=== PATIENT | male | born 1955 | race Caucasian/White ===

== ENCOUNTER 2024-10-25 09:28 | Emergency (ER) | payer MEDICARE, SELFPAY ==
--- OUTSIDE RECORDS SUMMARY | 2024-07-28 09:30 | XMS_ITS ---
Author Organization [facility] Address [address] [place] [address] Care Team Providers Care Decorating Inspector Name Role Phone Sofia, Fletcher Luiza [phone] REASON FOR VISIT [phone] Est Care - in Afib now per nurse Encounters Encounter Location Date Provider Diagnosis [facility] [address] [place] [address] 07/28/2024 Fletcher Sofia Plan Of Treatment No Information Progress Notes * DICKSON Mumta[birth year]DOB:[birth year] (68 yo M)Acc No.[id number]:07/28/2024 Progress Notes Patient: Mumtaz Staley Provider: Taty Sofia DO :1955 A ge:68 Y S ex:Male Date:07/28/2024 Address:[address] [place] [address] [id number] Subjective: * Chief Complaints: * [phone] [id number] Est Care - in Afib now per HH nurse * Electronic signature of Fletcher Sofia DO on 10/25/2024 at 09:37 AM CDT Sign off status: Pending * Provider: Taty Sofia DO Date: 07/28/2024 Generated for Yassinei ng/Faaramg/eTransmitting on: 0 10/25/2024 09:37 AM CDT
--- NOTE | 2024-10-25 09:35 | XRR_ITS ---
PROCEDURE INFORMATION: Exam: XR Chest Exam date and time: 10/25/2024 9:51 AM Age: 68 years old Clinical indication: Pain; Angina pectoris; Prior surgery; Surgery date: 6+ months; Surgery type: Open heart; Additional info: Chest pain TECHNIQUE: Imaging protocol: Radiologic exam of the chest. Views: 1 view. COMPARISON: No relevant prior studies available. FINDINGS: Tubes, catheters and devices: Median sternotomy suture wires. Lungs: Slightly prominent right hilum, a perihilar nodule is not excluded. Consider chest CT to help exclude pathology. Pleural spaces: Unremarkable. No pleural effusion. No pneumothorax. Heart/Mediastinum: See Vasculature finding. Vasculature: Borderline cardiomegaly and uncoiling of the thoracic aorta. Bones/joints: Prior anterior cervical fusion. XR/XR chest 1V portable [id number] IMPRESSION: Slightly prominent right hilum.
--- NOTE | 2024-10-25 09:35 | ECG_ITS ---
[facility] Test Date: 2024-10-25 Pat Name: Mumtaz Glaser Department: Room: Gender: Male [employer]: : 1955 Requested By: Pili Mejia Order Number: [id number] Jhonathan MD: Сергей Ellis M.D. Measurements Intervals [place] Rate: 75 P: -64 DE: 107 QRS: 51 QRSD: 106 T: 76 QT: 396 QTc: 444 Interpretive Statements JUNCTIONAL RHYTHM SEPTAL MYOCARDIAL INFARCTION , PROBABLY OLD [40+ ms Q WAVE IN V1/V2] No previous ECG available for comparison Electronically Signed On 10-25-2024 16:59:20 CDT by Сергей Ellis M.D. [email or web address]
--- OUTSIDE RECORDS SUMMARY | 2024-10-25 09:37 | XMS_ITS | Patient Health Record ---
Author Organization [facility] Address [address] [place] [id number] Care Team Providers Care End Finder Twisting Department Name Role Phone Elsy FISHER, Ashok Primary Care Provider Wily Sharma [phone] ALLERGIES No Known Allergies REASON FOR REFERRAL No Information MEDICATIONS Medication SIG (Take, Route, Frequency, Duration) Notes Start Date End Date Status Potassium Chloride ER 10 MEQ 1 tablet with food Orally Twice a day Active Aspirin 81 MG 1 tablet Orally Once a day Active Spironolactone 25 MG 1 tablet Orally Onc e a day Active traZODone HCl 50 MG 1 tablet at bedtime as needed Orally Once a day for 30 day(s) Active Lisinopril 10 MG 1 tablet Orally Once a day Active Eliquis 5mg 1 tablet Orally twice daily Active Nicotine 14 MG/24HR 1 patch to skin Transdermal Once a day for 30 day(s) Active Carvedilol 6.25 MG 1 tablet with food Orally Twice a day needs refill 07/18/22 Active Dulera 200-5 MCG/ACT 2 puffs Inhalation Twice a day Active SOCIAL HISTORY Tobacco Use: Social History Observation Description Date Details (start date - stop date) Current Smoker NA - NA Sex Assigned At : Social History Observation Description Sex Assigned At Unknown Tobacco Use/Smoking Question Answer Notes Smoking Status: current every day smoker Alcohol Screen Question Answer Notes Did you have a drink containing alcohol in the p ast year? No Points 0 Interpretation Negative PROBLEMS Problem Type ICD Code Onset Dates Problem Status W/U Status Risk SNOMED Code Notes Problem Paroxysmal a-fib (I48.0) Active confirmed 492722453 Problem Old [place] (myocardial infarction) (I25.2) Active confirmed 4264346 Problem HTN (hypertension), benign (I10) Active confirmed 78080656 Problem Ischemic cardiomyopathy (I25.5) Active confirmed 743097364 Problem Chronic systolic CHF (congestive heart failure), NYHA class 3 (I50.22) Active confirmed 417352701 Problem Atrial flutter by electrocardiogram (I48.92) Active confirmed 604405488 Problem COPD mixed type (J44.9) Active confirmed 01686101 Problem 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) Active confirmed 399 687927 PLAN OF TREATMENT Pending Test Test Name Order Date Basic Metabolic Panel 01/08/2021 CBC 01/08/2021 ECG 04/19/2021 PROTHROMBIN TIME-INR 01/08/2021 Echo - 2D Echo (with 3D if indicated) Future Test Test Name Order Date Basic Metabolic Panel 01/29/2021 CBC 01/29/2021 PROTHROMBIN TIME-INR 01/29/2021 EP - Ablation 02/02/2021 Insurance Providers Payer Name Payer Address Payer Phone Subscriber Number Group Number Insured Name Patient Relationship to Insured Coverage Start Date Coverage End Date [facility] [address] [address] [place], [place] [id number] Mumtaz Glaser Jr Self - patient is the insured MEDICAL (GENERAL) HISTORY Medical History History ICD Code Hypertension [place] Atrial Fibrillation Surgical History Surgery Date(Month/Year) ablation-[facility] 03/09/2021 Heart Cath 2020 CABG 2009 Hospitalization History Reason Date(Month/Year) see above
--- OUTSIDE RECORDS SUMMARY | 2024-10-25 09:37 | XMS_ITS | Patient Health Record ---
Author Organization [facility] Address [address] [place] [address] Care Team Providers Care Sheetmetal Worker Name Role Phone Nehemiah Lazcano JR Unavailable [phone] Fletcher Sofia Unavailable [phone] Allergies Allergen (clinical drug ingredient) Drug/Non Drug Allergy documented on EMR Reaction Allergy Type Onset Date Status No Known Drug Allergy Unknown Drug Allergy Active Reason For Referral No Information Medications Medication SIG (Take, Route, Frequency, Duration) Notes Start Date End Date Status Lisinopril 10 MG Tablet TAKE 1 TABLET BY MOUTH ONCE DAILY; Duration: 90 Active Potassium Chloride Hermelinda ER 20 MEQ Tablet Extended Release TAKE 1 TABLET BY MOUTH WITH FOOD ONCE DAILY; Duration: 90 days Active Carvedilol 6.25 MG Tablet 1 tablet with food Orally Twice a day; Duration: 30 days Active traZODone HCl 50 MG Tablet 1 tablet at b edtime as needed Orally Once a day; Duration: 30 days Active Spironolactone 25 MG Tablet TAKE 1 TABLET BY MOUTH ONCE DAILY; Duration: 30 days Active Apixaban 5 MG Tablet as directed Orally twice a day; Duration: 30 days Active predniSONE 10 MG Tablet 1 tablet Orally Once a day Active Dulera 200-5 MCG/ACT Aerosol 2 puffs Inhalation Twice a day Not-Taking Aspirin 81 81 MG Tablet Chewable 1 tablet Orally Once a day Active Nicotine 14 MG/24HR Patch 24 Hour 1 patch to skin Transdermal Once a day Active Reglan 10 MG Tablet 1 tablet as directed Orally once; Duration: 1 day 01/04/2021 Active Social History Tobacco Use: Social History Observation Description Date Details (start date - stop date) Current Smoker NA - NA Social History Drugs/Alcohol: Social Info Question Answer Notes Alcohol Screen (Audit-C) Did you have a drink containing alcohol in the past year? No Points 0 Interpretation Negative Tobacco Use: Social Info Question Answer Notes xTobacco Use/Smoking Are you a current smoker How often do you smoke cigarettes? every day Additional Details Category Social Info Options Details zzMigrated Social History Tobacco Use: (Tobacco Use/Smoking): Are you a:: current smoker , How many cigarettes a day do you smoke?: 11-20 ; Section Notes: Caffiene Problems Problem Type SNOMED Code ICD Code Onset Dates Problem Status W/U Status Risk Notes Problem Tobacco user (219937242) Nicotine dependence, unspecified, uncomplicated (F17.200) Active confirmed Problem Ischemic cardiomyopathy (689356264) Ischemic cardiomyopathy (I25.5) Active confirmed Problem Typical atrial flutter (638032563) Typical atrial flutter (I48.3) Active confirmed Problem Atrial fibrillation (64342203) Unspecified atrial fibrillation (I48.91) Active confirmed Problem Atrial flutter (9969808) Unspecified atrial flutter (I48.92) Active confirmed Problem Chronic systolic heart failure (367115859) Chronic systolic (congestive) heart failure (I50.22) Active confirmed Problem Chronic obstructive pulmonary disease (63904872) Chronic obstructive pulmonary disease, unspecified (J44.9) Active confirmed Problem Diverticular disease of colon (055015044) Diverticulosis of large intestine without perforation or abscess without bleeding (K57.30) Active confirmed Problem Mixed hyperlipidemia (985327224) Mixed hyperlipidemia (E78.2) Active confirmed Problem Hypertensive heart failure (54179786) Hypertensive heart disease with heart failure (I11.0) Active confirmed Problem Essential hypertension (25495197) Essential hypertension (I10) Active confirmed Problem COPD - Chronic obstructive pulmonary disease (43027835) Chronic obstructive pulmonary disease, unspecified COPD type (J44.9) Active confirmed Problem Persistent atrial fibrillation (959302181) Persistent atrial fibrillation (I48.19) Active confirmed Problem Significant coronary bypass graft disease (424788800) Coronary artery disease involving coronary bypass graft of [place] heart without angina pectoris (I25.810) Active confirmed Problem Atherosclerosis of coronary artery without angina pectoris (266729655285793) Atherosclerosis of [place] coronary artery of [place] heart without angina pectoris (I25.10) Active confirmed Problem Tobacco user (546745046) Cigarette nicotine dependence without complication (F17.210) Active confirmed Problem Atrial flutter (9973400) Atrial flutter, unspecified type (I48.92) Active confirmed Problem Mitral and aortic insufficiency (679468278) Mitral and aortic insufficiency (I08.0) Active confirmed Problem Atherosclerotic heart disease of [place] coronary artery without angina pectoris (032798263957043) Coronary artery disease, unspecified vessel or lesion type, unspecified whether angina present, unspecified whether [place] or transplanted heart (I25.10) Active confirmed Encounters Encounter Location Date Provider Diagnosis [facility] [address] [place] [address], [place] [address] 06/07/2024 [facility] [address] [place] [address], [place] [address] 06/07/2024 [facility] [address] [place] [address], [place] [address] 06/08/2024 [facility] [address] [place] [address], [place] [address] 06/10/2024 [facility] [address] [place] [address], [place] [address] 06/23/2024 [facility] [address] [place] [address], [place] [address] 06/23/2024 [facility] [address] [place] [address], [place] [address] 06/25/2024 [facility] [address] [place] [address], [place] [address] 06/28/2024 [facility] [address] [place] [address], [place] [address] 06/28/2024 Nehemiah Neno Plan Of Treatment No Information Insurance Providers Payer Name Payer Address Payer Phone Subscriber Number Group Number Insured Name Patient Relationship to Insured Coverage Start Date Coverage End Date [facility] [address] [place] [phone] [id number] Mumtaz Forman Self - patient is the insured [place] Medicare [address] [place] [phone] [id number] Mumtaz Forman Self - patient is the insured Medical (General) History Medical History History ICD Code Atrial fibrillation chronic anticoagulat ion chronic obstructive pulmonary disease CAD hypertension chronic systolic heart failure Degenerative disc disease Surgical History Surgery Date(Month/Year) lumbar spine fusion CABG cervical spine fusion CABG, 3 vessel left rotator cuff repair Hospitalization History Reason Date(Month/Year) [facility] Shortness of breath, atrial flutter 11/2020
[2024-10-25 09:44] VITALS: BP 115/75; PULSE 75; RESP 18; TEMP 36.7; O2SAT 96
--- NOTE | 2024-10-25 09:54 | W.ED.SOB ---
HPI - SOB/Dyspnea General: Chief Complaint: Chest Pain Stated Complaint: chest pain Time Seen by Provider: 10/25/24 09:47 Source: patient Mode of arrival: ambulatory Limitations: no limitations History of Present Illness: HPI Narrative: Patient is a 68-year-old male presents to ED today for a few medical complaints. He first of all tells me I feel like my heart is about to give out . He does not overly complain of chest pain but feels like he may be in atrial fibrillation. He states he has a history of this requiring a cardiac ablation about a year ago. States he has been doing well since this. He does feel like his heart races/flutters. He is also having a complaint of kidney pain and feels like he may be passing a kidney stone. He complains of pain across his lower back. He has had lumbar fusion surgery here. He is not having any radicular pains into his legs. Denies dysuria, hematuria, frequency/urgency. PMH also significant for cardiac bypass surgery. Patient is an everyday smoker. He does feel like maybe he has been coughing more than normal. He does have inhalers that he has been prescribed but does not use these. Vital signs are stable upon arrival MD elicited complaint: shortness of breath Pertinent past history: COPD and other (cardiac bypass, atrial fib/cardiac ablation) Onset (ago): day(s) Timing: constant Severity: moderate Exacerbating factors: nothing Relieving factors: nothing Known history of: COPD Associated symptoms: Reports palpitations; Deny abdominal pain, chest pain, dizziness, extremity pain, fever(s), lightheadedness, nausea, syncope or vomiting Treatment prior to arrival: none Related Data Home Medications ?Medication ?Instructions ?Recorded ?Confirmed carvedilol 12.5 mg tablet 12.5 mg PO BID 10/25/24 10/25/24 lisinopril 10 mg tablet 10 mg PO DAILY 10/25/24 10/25/24 potassium chloride 20 mEq 20 meq PO DAILY 10/25/24 10/25/24 tablet,extended release spironolactone 25 mg tablet 25 mg PO DAILY 10/25/24 10/25/24 Allergies Allergy/AdvReac Type Severity Reaction Status Date / Time No Known Allergies Allergy Unverified 10/25/24 10:56 Review of Systems Const: Denies: fever(s), chills, body aches, fatigue or malaise Eyes: Denies: change in vision, blurry vision, photophobia, floaters or seeing flashes Card: Reports: palpitations; Denies: chest pain, edema, swelling of feet/ankles, lightheadedness, syncope, pre-syncope or leg pain with exertion Resp: Reports: dyspnea and non-productive cough GI: Denies: abdominal pain, nausea, vomiting, diarrhea or change in bowel habits : Denies: flank pain, difficulty urinating, dysuria, urinary frequency, urinary urgency or urinary hesitancy Musc: Reports: back pain; Denies: neck pain, extremity pain, extremity swelling, joint pain, joint swelling or joint redness Skin/Breast: Denies: rash Neuro: Denies: headache(s), numbness in extremities, weakness in extremities, sensory changes or dizziness Physical Exam Const: COMMON NORMALS: no acute distress, average body habitus, patient oriented x3, no limitations, healthy appearing, alert and well nourished GENERAL APPEARANCE: cooperative ORIENTATION/CONSCIOUSNESS: Yes awake, Yes oriented to person, Yes oriented to place and Yes oriented to time HENMT: COMMON NORMALS: normocephalic and atraumatic HEAD & SCALP: normal to inspection, normocephalic and atraumatic Neck/C-Spine: COMMON NORMALS: full ROM, no lymphadenopathy, supple and no meningeal signs Chest: COMMONS NORMALS: normal inspection of the chest and normal palpation of entire chest wall Resp: COMMON NORMALS: normal respiratory effort AUSCULTATION: wheezes Cardio: COMMON NORMALS: regular rate and regular rhythm RATE: regular rate RHYTHM: regular rhythm GI: COMMON NORMALS: Normal to inspection, nondistended, normoactive bowel sounds present, Soft to palpation, non-tender, No hepatosplenomegaly present and no masses PALPATION: Yes Soft to palpation and Yes No hepatosplenomegaly present : COMMON NORMALS: Yes no CVA tenderness BLADDER/KIDNEY EXAM: Yes no CVA tenderness Back/Pelvis: COMMON NORMALS: no CVA tenderness, thoracic and lumbar spine normal to inspection, no thoracic nor lumbar tenderness, thoraco-lumbar ROM normal and straight leg raise negative bilaterally LUMBAR SPINE/LOWER BACK: Yes paraspinal muscle tenderness (pain across lower back) PELVIS: Yes buttocks normal and No sciatic notch tenderness SACRUM: no tenderness COCCYX: no tenderness Extremity: COMMON NORMALS: normal to inspection, capillary refill normal, no clubbing, cyanosis or edema, no calf tenderness and no pedal edema GENERAL: Yes normal exam except as noted Neuro: COMMON NORMALS: patient oriented x3, moves all extremities, no focal motor deficits and no sensory deficits noted SENSORIUM/ORIENTATION: Yes alert, Yes oriented to person, Yes oriented to place and Yes oriented to time MENINGEAL SIGNS: Yes no meningeal signs Skin: COMMON NORMALS: no rashes or lesions noted GENERAL SKIN EXAM: no rashes or lesions noted Course Vital Signs: Vital signs: Vital Signs Temperature 98.0 F 10/25/24 09:44 Pulse Rate 70 10/25/24 10:07 Respiratory Rate 20 H 10/25/24 10:07 Blood Pressure 138/91 10/25/24 10:03 Pulse Oximetry 95 10/25/24 10:07 Oxygen Delivery Me thod Room Air 10/25/24 10:07 MDM - SOB/Dyspnea Medical Decision Making Patient is a 68-year-old male here for shortness of breath, palpitations, and lower back pain. His vital signs are stable. EKGs do not show irregular rhythm. His main complaint was pain across his lower back. He had no flank pain. Pain is significantly better with medications here and currently rating it a 1/10. He did not have any radicular symptoms down into his legs. Pain did not radiate into his abdomen. Blood work here overall is nonactionable. UA is clear. Baseline troponin of 17 with a nonsignificant delta. XR of his lumbar spine obtained and showing degenerative changes. CXR showing possible right perihilar nodule that can be followed up with as an outpatient with CT imaging. Patient was made aware of this finding. On reexamination, he tells me his shortness of breath has improved. He is satting normally. Not tachycardic. No suspicion for PE based on history. Recommend he follow-up with his primary care and/for cardiology. Patient will be given medications to help with his musculoskeletal back pain. Dyspnea could possibly be related to his COPD. He does have inhalers to use at home for this but does not. Medical Records I reviewed the patient's medical records. Lab Data I reviewed the patient's lab results. 10/25/24 09:59 10/25/24 09:59 Labs/Radiology: Radiology Impressions Chest X-Ray 10/25/24 09:35 IMPRESSION: Slightly prominent right hilum. Lumbar Spine X-Ray 10/25/24 10:53 IMPRESSION: Degenerative changes. Laboratory Results WBC 8.66 10^3/uL (3.29-11.43) 10/25/24 09:59 RBC 4.88 10^6/uL (3.85-5.65) 10/25/24 09:59 Hgb 15.20 g/dL (11.27-16.99) 10/25/24 09:59 Hct 46.4 % (37-53) 10/25/24 09:59 MCV 95.1 fl (82-101) 10/25/24 09:59 MCH 31.1 pg (27-33) 10/25/24 09:59 MCHC 32.8 g/dL (30-55) 10/25/24 09:59 RDW 14.5 % (12.1-15.1) 10/25/24 09:59 Plt Count 263 10^3/cmm (157-399) 10/25/24 09:59 MPV 9.1 fL (7.4-10.4) 10/25/24 09:59 Neut % (Auto) 60.5 % 10/25/24 09:59 Lymph % (Auto) 26.8 % 10/25/24 09:59 [place] % (Auto) 10.0 % 10/25/24 09:59 Eos % (Auto) 2.4 % 10/25/24 09:59 Baso % (Auto) 0.1 % 10/25/24 09:59 Neut # (Auto) 5.23 10^3/uL (1.8-7.7) 10/25/24 09:59 Lymph # (Auto) 2.3 10^3/uL (0.8-4.8) 10/25/24 09:59 [place] # (Auto) 0.9 10^3/uL (0.2-0.9) 10/25/24 09:59 Eos # (Auto) 0.2 10^3/uL (0.0-0.8) 10/25/24 09:59 Baso # (Auto) 0.0 10^3/uL (0.0-0.1) 10/25/24 09:59 Nucleated RBC % (auto) 0 % 10/25/24 09:59 Nucleated RBCs # 0.0 /100WBC 10/25/24 09:59 Sodium 139 mmol/L (136-145) 10/25/24 09:59 Potassium 4.0 mmol/L (3.5-5.1) 10/25/24 09:59 Chloride 99 mmol/L (98-107) 10/25/24 09:59 Carbon Dioxide 29 mmol/L (22-29) 10/25/24 09:59 Anion Gap 15.0 (5-19) 10/25/24 09:59 BUN 13 mg/dL (8-23) 10/25/24 09:59 Creatinine 0.8 mg/dL (0.7-1.2) 10/25/24 09:59 GFR Calculation 96.1 mL/min (90-130) 10/25/24 09:59 Glucose 86 mg/dL (65-115) 10/25/24 09:59 Calculated Osmolality 287 mOsm/kg (285-295) 10/25/24 09:59 Calcium 9.0 mg/dL (8.5-10.5) 10/25/24 09:59 Total Bilirubin 0.2 mg/dL (0.15-1.2) 10/25/24 09:59 AST 14 U/L (0-40) 10/25/24 09:59 ALT 15 U/L (0-41) 10/25/24 09:59 Alkaline Phosphatase 94 U/L (40-130) 10/25/24 09:59 Troponin T Baseline 17 ng/L (0-15) H 10/25/24 09:59 Troponin T 120 Minute 18.63 ng/L (0-15) H 10/25/24 12:21 Delta Troponin T 1.63 ABS# (0-10) 10/25/24 12:21 NT-Pro-B Natriuret Pep 145 pg/mL (0-125) H 10/25/24 09:59 Total Protein 7.3 g/dL (6.6-8.7) 10/25/24 09:59 Albumin 3.8 g/dL (3.5-5.2) 10/25/24 09:59 Globulin 3.5 g/dL (1.3-4.6) 10/25/24 09:59 Urine Color Yellow (Yellow) 10/25/24 10:33 Urine Appearance Clear (CLEAR) 10/25/24 10:33 Urine pH 5.0 (5-7) 10/25/24 10:33 Ur Specific [place] 1.019 (1.005-1.030) 10/25/24 10:33 Urine Protein Negative (Negative) 10/25/24 10:33 Urine Glucose (UA) Negative (Normal) 10/25/24 10:33 Urine Ketones Trace (Negative) 10/25/24 10:33 Urine Blood Negative (Negative) 10/25/24 10:33 Urine Nitrate Negative (Negative) 10/25/24 10:33 Urine Bilirubin Negative (Negative) 10/25/24 10:33 Urine Urobilinogen 1.0 mg/dL (Negative) 10/25/24 10:33 Ur Leukocyte Esterase Negative (Negative) 10/25/24 10:33 Urine RBC 0-2 /hpf (0-2) 10/25/24 10:33 Urine WBC 0-5 /hpf (0-5) 10/25/24 10:33 Ur Squamous Epith Cells 0-5 /hpf (0-5) 10/25/24 10:33 Amorphous Sediment Not Reportable 10/25/24 10:33 Urine Bacteria None seen /hpf (NONE) 10/25/24 10:33 Hyaline Casts 0-4 /lpf H 10/25/24 10:33 All radiology interpretation(s) finalized by discharge Discharge Plan Discharge Patient Disposition: Home Clinical Impression: Palpitations Low back pain Qualifiers: Chronicity: acute Back pain laterality: midline Sciatica presence: without sciatica Qualified Code(s): M54.50 - Low back pain, unspecified Dyspnea Qualifiers: Dyspnea type: unspecified Qualified Code(s): R06.00 - Dyspnea, unspecified Condition: Stable Prescriptions: No Action carvedilol 12.5 mg Tablet 12.5 mg PO BID Rx Instructions: must administer with a meal/food spironolactone 25 mg Tablet 25 mg PO DAILY lisinopril 10 mg Tablet 10 mg PO DAILY potassium chloride 20 mEq Tablet Extended Release 20 meq PO DAILY Discharge Orders: Discharge ED (Routine); Ordered 10/25/24 Ordered By: Pili Mejia Patient Instructions: Patient Portal & Oli Instructions Activity Restrictions/Additional Instructions: As we discussed, your blood work here was unremarkable. You have not been in atrial fibrillation during your stay here. Recommend you follow-up with your research dietitian. X-ray of your lower back showing degenerative changes. You may use [id number] Tylenol and Motrin as well as ice and heat and topical medication such as Biofreeze or Voltaren gel to help with discomfort. You may follow-up with your primary care provider for further evaluation. Recommend you start taking your inhalers to help with your COPD/breathing. You may return to the emergency department at anytime for any further concerns you may have. Print Language: Yoruba Coding Level of Care Code ED Neurological Physiotherapist for Toro Marquez
[2024-10-25 10:03] VITALS: BP 138/91; PULSE 77; RESP 27; O2SAT 95
[2024-10-25 10:05] LABS: Hematocrit 46.4 % (37-53); Hemoglobin 15.20 g/dL (11.27-16.99); Mean Corpuscular HGB Conc 32.8 g/dL (30-55); Mean Corpuscular Hemoglobin 31.1 pg (27-33); Mean Corpuscular Volume 95.1 fl (82-101); Nucleated Red Blood Cells % 0 %; Platelet Count 263 10^3/cmm (157-399); Red Blood Count 4.88 10^6/uL (3.85-5.65); White Blood Count 8.66 10^3/uL (3.29-11.43)
[2024-10-25 10:07] VITALS: PULSE 70; RESP 20; O2SAT 95
[2024-10-25 10:21] LABS: Troponin(5th) Baseline 17 ng/L (0-15)
[2024-10-25 10:37] LABS: Alanine Aminotransferase 15 U/L (0-41); Albumin Level 3.8 g/dL (3.5-5.2); Alkaline Phosphatase 94 U/L (40-130); Anion Gap 15.0 (5-19); Aspartate Amino Transferase 14 U/L (0-40); Blood Urea Nitrogen 13 mg/dL (8-23); Calcium 9.0 mg/dL (8.5-10.5); Carbon Dioxide 29 mmol/L (22-29); Chloride 99 mmol/L (98-107); Globulin 3.5 g/dL (1.3-4.6); Glucose 86 mg/dL (65-115); NT Pro B Type Natriuretic Pept 145 pg/mL (0-125); Osmolality Calculated 287 mOsm/kg (285-295); Potassium 4.0 mmol/L (3.5-5.1); Sodium 139 mmol/L (136-145); Total Protein 7.3 g/dL (6.6-8.7)
[2024-10-25 10:40] LABS: Glucose Urine UA Negative (Normal); Nitrate Urine Negative (Negative); Specific Gravity, Urine 1.019 (1.005-1.030)
[2024-10-25 10:43] LABS: Add Urine Microscopic? YES
--- NOTE | 2024-10-25 10:53 | XRR_ITS ---
PROCEDURE INFORMATION: Exam: XR Lumbosacral Spine Exam date and time: 10/25/2024 11:25 AM Age: 68 years old Clinical indication: Low back pain; Additional info: Lumbar back pain TECHNIQUE: Imaging protocol: Radiologic exam of the lumbosacral spine. Views: 2 or 3 views. COMPARISON: No relevant prior studies available. FINDINGS: Bones/joints: Diffuse demineralization. Disc space narrowing and spurring L4 through S1. Mild marginal spurring in the lower thoracic and upper lumbar spine. Anatomic alignment. No lytic or sclerotic bone lesion. Soft tissues: Unremarkable. XR/XR lumbar spine 2-3V* 24477 IMPRESSION: Degenerative changes.
--- NOTE | 2024-10-25 10:56 | PC.PHAR ---
Addendum entered by Dottie Heck 10/25/24 11:07: After returning to pts' room he presented a notebook with his current medications. When I asked about last fill date of April of 2023, pt stated he has some left and still takes. Pt states he thinks he is out of the Carvedilol 12.5mg. Original Note: Pt states he gets his medication from [facility] [phone]. [facility] has filled Spironolactone 25mg and Linsinopril 10mg April 2023 (over a year ago). No other medications or newer refills[phone].
[2024-10-25] MEDS: morphine 4 mg/mL SDV 1 mL IVP (11:12)
[2024-10-25] MEDS: orphenadrine 30 mg/mL Inj 2 mL 60 MG IVP (11:13)
--- NOTE | 2024-10-25 11:37 | ECG_ITS ---
[facility] Test Date: 2024-10-25 Pat Name: Mumtaz Glaser Department: Room: Gender: Male Food [employer] Beverage [employer]st: : 1955 Requested By: Pili Mejia Order Number: [id number] Jhonathan MD: Сергей Ellis M.D. Measurements Intervals Kenvir Rate: 74 P: -80 CT: 105 QRS: 61 QRSD: 108 T: 83 QT: 416 QTc: 463 Interpretive Statements SEPTAL MYOCARDIAL INFARCTION , OF INDETERMINATE AGE [40+ ms Q WAVE IN V1/V2] Compared to ECG 10/25/2024 09:38:29 No significant changes Electronically Signed On 10-25-2024 17:09:19 CDT by Сергей Ellis M.[email or web address]
[2024-10-25 12:47] LABS: Troponin 5 2HR 18.63 ng/L (0-15); Troponin 5 2HR Delta 1.63 ABS# (0-10)
[2024-10-25 13:09] VITALS: BP 110/68; PULSE 84; O2SAT 94
== END 2024-10-25 13:14 | disposition home or self-care (01) ==
PROVIDERS: Emergency Provider Physician Assistant
DX: R00.2 Palpitations (principal); M54.50 Low back pain, unspecified; R06.00 Dyspnea, unspecified
CPT/HCPCS: 36415; 71045; 72100; 80053; 81001; 83880; 84484; 85025; 93005; 94640; 96374; 96375; 99285; J1885; J2270; J2360; J9999